=== PATIENT | male | born 1950 | race Two or more races ===

== ENCOUNTER 2021-08-21 07:42 | Outpatient (CLI) | payer OTHER | END 2021-08-21 07:43 | disposition home or self-care (01) | LOC: LAB 07:42 | PROVIDERS: ATTEND Obstetrics & Gynecology | DX: N30.90 Cystitis, unspecified without hematuria (principal); R97.21 Rising PSA following treatment for malignant neoplasm of prostate ==

== ENCOUNTER 2022-01-24 08:49 | Outpatient (CLI) | payer OTHER | END 2022-01-24 08:51 | disposition home or self-care (01) | LOC: LAB 08:49 | PROVIDERS: ATTEND Surgery | DX: Z01.818 Encounter for other preprocedural examination (principal); K43.2 Incisional hernia without obstruction or gangrene; K40.20 Bilateral inguinal hernia, without obstruction or gangrene, not specified as recurrent; D68.8 Other specified coagulation defects ==

== ENCOUNTER 2022-02-07 06:26 | Day surgery (SDC) | payer OTHER ==
[~2022-02-07] VITALS: Ht 162.6 cm; Wt 64.4 kg
[2022-02-07] MEDS ORDERED: NEURONTIN600 M1 PO (15:13)
[2022-02-07] MEDS ORDERED: PERCOCET 5-3251 EACH PO (15:13)
[2022-02-07] MEDS ORDERED: POLY119PG PO (15:14)
== END 2022-02-07 17:30 | disposition home or self-care (01) ==
LOC: CIR.AMB 06:26
PROVIDERS: ATTEND Surgery
DX: K40.20 Bilateral inguinal hernia, without obstruction or gangrene, not specified as recurrent (principal); Z91.013 Allergy to seafood
CPT/HCPCS: 49650; C1781

== ENCOUNTER 2023-03-11 09:49 | Outpatient (CLI) | payer OTHER ==
[~2023-03-11 09:49] MED LIST: NEURONTIN600 M1 PO; PERCOCET 5-3251 EACH PO; POLY119PG PO
== END 2023-03-11 09:50 | disposition home or self-care (01) ==
LOC: LAB 09:49
PROVIDERS: ATTEND Urology
DX: R97.20 Elevated prostate specific antigen [PSA] (principal)

== ENCOUNTER 2023-05-10 07:06 | Outpatient (CLI) | payer OTHER | END 2023-05-10 07:16 | disposition home or self-care (01) | LOC: SONOGRAMA 07:06 | PROVIDERS: ATTEND Urology | DX: D29.1 Benign neoplasm of prostate (principal); N41.1 Chronic prostatitis ==